=== PATIENT | female | born 1995 | race Caucasian/White ===

== ENCOUNTER 2016-11-29 18:43 | Emergency (ER) | payer MEDICAID ==
[2016-11-29 18:49] VITALS: BMI 21.2
[2016-11-29 19:17] LABS: AMORPHOUS OCC; LEUKOCYTES/URINE 2+ (NEGATIVE); NITRITE/URINE POS (NEGATIVE); URINE OCCULT BLOOD NEG (NEG/TRACE); WBC/URINE TNTC (0-5)
[2016-11-29] MEDS ORDERED: ONDANSETRON HCL 4 MG/2 ML VIAL IV ONE (19:49)
[2016-11-29] MEDS ORDERED: CEFTRIAXONE 1 GM in D5W 100 ML IV ONE (19:49)
[2016-11-29] MEDS ORDERED: MORPHINE 4 MG/ML INJECTION IV ONE (19:49)
[2016-11-29] MEDS ORDERED: NS 1,000 ML IV ONE (19:49)
[2016-11-29 19:51] LABS: AUTOMATED BASOPHIL 0.7 % (0-2); AUTOMATED EOSINOPHIL 0.1 % (0-5); AUTOMATED LYMPH 12.5 % (17-44); AUTOMATED MONOCYTE 8.4 % (3-10); AUTOMATED NEUTROPHIL 78.3 % (45-76); MPV 9.1 fL (7.4-10.4)
[2016-11-29] MEDS ORDERED: ACETAMINOPHEN 325 MG/TAB TABLET PO ONE ×2 (19:51→20:21)
--- NOTE | 2016-11-29 19:51 | EDPRACDOC ---
- General Information Chief Complaint: Female Urogenital Problems Stated Complaint: FEVER LOWER BACK PAIN BURNING WITH URINATION Time Seen by Provider: 11/29/16 19:42 Information Source: Patient Mode Of Arrival: Car Home Medications: Home Medications Ciprofloxacin HCl [Cipro] 500 mg PO BID #14 tab 11/29/16 Hydrocodone Bit/Acetaminophen [Lortab 5/325] 1 tab PO Q4-6H PRN #15 tab Metronidazole [Flagyl] 500 mg PO BID #14 tab 11/29/16 Ondansetron HCl [Zofran] 4 mg PO Q8H PRN #15 tab 11/29/16 Allergies/Adverse Reactions: Allergies Allergy/AdvReac Type Severity Reaction Status Date / Time Penicillins Allergy Nausea/Vomi Verified 11/29/16 19:47 ting tramadol Allergy Nausea/Vomi Verified 11/29/16 19:47 ting - History of Present Illness Onset: 2 week HPI: Pt c/o lower back pain, lower abd pain, n/v, fever, dysuria x 2 weeks. Denies cough, congestion, cp, sob, changes in bowel, rash. Pain Location: Reports: Suprapubic, Flank Pain Context: Reports: Spontaneous Pain Severity: Moderate Pain Quality: Reports: Aching, Sharp Pain Radiation: Reports: Back Last Menstrual Period: 2 weeks ago : No Abortus: 0 Blood Type: A+ Adult Abdominal History: Denies: Urolithiasis, Bowel Obstruction Female Abdominal History: Denies: UTI, Ectopic, PID, Urolithiasis Modifying Factors: improves with: Nothing Female Associated Signs & Symptoms: Reports: Nausea, Vomiting, Fever, Vaginal Discharge Oral Intake: Decreased Urinary Output: Normal ED Past Medical History - History Reviewed Yes Nurses notes reviewed and agree except as marked - Patient Medical History GI/ History: Denies: Urinary Tract Infection Psychological History: Denies: Depression Systemic History: Denies: Cancer, Anemia, Lupus Surgical History: Denies: Hysterectomy - Family Medical History Reports: Hypertension (MATERNAL MOTHER), Diabetes (MATERNAL GRANDPARENTS), Cancer (MATERNAL GRANDPARENTS), Stroke (MATERNAL GRANDFATHER), Cardiac Disorders (MATERNAL PARENTS) - Social Medical History Smoking Status: Heavy tobacco smoker (5 or more cigarettes/day or daily pipe/ cigar) Social History: Denies: Amphetamine Use, Barbiturate Use, Benzodiazipine Use, Cocaine Use, Heroin Use, Marijuana Use, Methadone Use ETOH: None Substance Abuse: None EDM Review of Systems - Review of Systems Constitutional: Fever Ears: No Symptoms Reported. negative: Pain, Hearing Loss, Drainage, Ear Pulling Throat: No Symptoms Reported. negative: Pain, Swelling Nose: No Symptoms Reported. negative: Congestion, Bleeding, Discharge, Injection, Swelling, Deformity, Ecchymosis, Tender, Abrasion, Laceration Mouth: No Symptoms Reported. negative: Pain, Drooling Respiratory: No Symptoms Reported. negative: Cough, Brassy Cough, Barky Cough, Shortness of Breath, Wheezing, Hemoptysis Cardiovascular: No Symptoms Reported. negative: Chest Pain, Palpitations, Syncope, Edema, Orthopnea, PND, Skin Mottling, Cyanosis Gastrointestinal: Nausea, Pain, Vomiting Genitourinary: Dysuria, Discharge Neurological: No Symptoms Reported. negative: Headache, Dizziness, Seizure, Numbness, Weakness, Speech Difficulty, Gait Difficulty Musculoskeletal: Back Integumentary: No Symptoms Reported. negative: Itching, Rash, Bruising, Wound Allergic/Immunologic: No Symptoms Reported. negative: Hives, Itching Hematologic: No Symptoms Reported. negative: Lymphadenopathy, Easy Bruising, Easy Bleeding Psychiatric: No Symptoms Reported. negative: Anxiety, Depression, Hallucinations, Insomnia, Suicidal - Physical Exam Constitutional: Alert Oriented to: Time, Person, Place Last recorded Vital Signs: Last Vital Signs Temp 100.1 F 11/29/16 18:47 Pulse 114 11/29/16 19:36 Resp 20 11/29/16 19:36 BP 126/85 11/29/16 19:36 Pulse Ox 96 11/29/16 19:36 Oxygen Pulse Oxygen Saturation 96 O2 Device Room Air Oxygen Flow Rate Fraction of Inspired Oxygen ( FIO2) - HEENT Head: Normal ( normocephalic) Eye Exam: Normal (PERRL, EOMI, Sclera white) Neck: Normal (FROM, trachea at midline) - Respiratory/Cardiovascular Respiratory: Normal - CTA (BBS clear to auscultation without adventitious sounds ) Cardiovascular: Tachycardia - GI Auscultation: Normal (NABS) Palpation: Normal (Soft,No rebound or guarding, non distended) Tenderness: Non tender - Musculoskeletal Back: CVA Tenderness (R) Extremities: Normal (Normal tone, Pulses 2+ No cyanosis or edema, FROM) - Integumentary Skin: Diaphoretic Lymphatics: Normal (no adenopathy) - Neurologic Memory Impaired: Normal Motor Function: Normal (Normal tone, Pulses 2+ No cyanosis or edema, FROM) Mood Description: Normal Perception: Normal - Differential Diagnosis Gastroenteritis, UTI, Other (pyelonephritis, vaginitis, cervicitis) - Re-evaluation Re-evaluation 1 Re-evaluation Time: 21:31 (improved) - Results 11/29/16 19:44 11/29/16 19:44 WBC 11.0 xk/uL (3.8-10.8) H 11/29/16 19:44 RBC 4.68 xM/uL (4.20-5.40) 11/29/16 19:44 Hgb 12.8 g/dL (12.0-16.0) 11/29/16 19:44 Hct 38.2 % (36-47) 11/29/16 19:44 MCV 82 fL (81-99) 11/29/16 19:44 MCH 27.3 pg (27-32) 11/29/16 19:44 MCHC 33.5 g/dl (33-36) 11/29/16 19:44 RDW 18.3 % (11.5-14.5) H 11/29/16 19:44 Plt Count 189 xk/uL (130-400) 11/29/16 19:44 MPV 9.1 fL (7.4-10.4) 11/29/16 19:44 Neut % (Auto) 78.3 % (45-76) H 11/29/16 19:44 Lymph % (Auto) 12.5 % (17-44) L 11/29/16 19:44 [place] % (Auto) 8.4 % (3-10) 11/29/16 19:44 Eos % (Auto) 0.1 % (0-5) 11/29/16 19:44 Baso % (Auto) 0.7 % (0-2) 11/29/16 19:44 Absolute Neuts (auto) 8.58 xk/uL (1.7-8.2) H 11/29/16 19:44 Absolute Lymphs (auto) 1.32 xk/uL (0.65-4.75) 11/29/16 19:44 Sodium 139 mEq/L (137-146) 11/29/16 19:44 Potassium 4.2 mEq/L (3.5-5.1) 11/29/16 19:44 Chloride 101 mEq/L (98-107) 11/29/16 19:44 Carbon Dioxide 24 mMOL/L (22-33) 11/29/16 19:44 Anion Gap 18 mEq/L (8-16) H 11/29/16 19:44 BUN 13 MG/DL (7-17) 11/29/16 19:44 Creatinine 0.60 MG/DL (0.52-1.04) 11/29/16 19:44 Estimated GFR (MDRD) > 60 mL/min (>=60) 11/29/16 19:44 Glucose 107 mg/dL (70-99) H 11/29/16 19:44 Calculated Osmolality 268 MOs/Kg (270-290) L 11/29/16 19:44 Calcium 8.7 MG/DL (8.4-10.2) 11/29/16 19:44 Total Bilirubin 0.7 MG/DL (0.2-1.3) 11/29/16 19:44 AST 31 IU/L (14-36) 11/29/16 19:44 ALT 38 IU/L (9-52) 11/29/16 19:44 Alkaline Phosphatase 89 IU/L (38-126) 11/29/16 19:44 Total Protein 7.7 G/DL (6.3-8.2) 11/29/16 19:44 Albumin 4.1 G/DL (3.5-5.0) 11/29/16 19:44 Urine Color Yellow 11/29/16 18:50 Urine Clarity Cldy 11/29/16 18:50 Urine pH 8.0 (5.0-8.0) 11/29/16 18:50 Ur Specific [place] 1.010 (1.003-1.035) 11/29/16 18:50 Urine Protein 1+ (NEG/TRACE) H 11/29/16 18:50 Urine Glucose (UA) Neg (NEGATIVE) 11/29/16 18:50 Urine Ketones 1+ (NEGATIVE) H 11/29/16 18:50 Urine Occult Blood Neg (NEG/TRACE) 11/29/16 18:50 Urine Nitrite Pos (NEGATIVE) H 11/29/16 18:50 Urine Bilirubin Neg (NEGATIVE) 11/29/16 18:50 Urine Urobilinogen 8 MG/DL (0-1) H 11/29/16 18:50 Ur Leukocyte Esterase 2+ (NEGATIVE) H 11/29/16 18:50 Urine WBC Tntc (0-5) H 11/29/16 18:50 Ur Epithelial Cells 2+ 11/29/16 18:50 Amorphous Sediment Occ 11/29/16 18:50 Urine Bacteria 4+ (NEG/FEW) H 11/29/16 18:50 Urine Test Neg (NEGATIVE) 11/29/16 18:50 Microbiology 11/29/16 20:05 MUNIRA Preparation - Final Vaginal 11/29/16 20:05 Trichomonas Wet [place] - Final Vaginal Lab Results 11/29/16 11/29/16 11/29/16 19:44 19:44 18:50 WBC 11.0 H RBC 4.68 Hgb 12.8 Hct 38.2 MCV 82 MCH 27.3 MCHC 33.5 RDW 18.3 H Plt Count 189 MPV 9.1 Neut % (Auto) 78.3 H Lymph % (Auto) 12.5 L [place] % (Auto) 8.4 Eos % (Auto) 0.1 Baso % (Auto) 0.7 Absolute Neuts (auto) 8.58 H Absolute Lymphs (auto) 1.32 Sodium 139 Potassium 4.2 Chloride 101 Carbon Dioxide 24 Anion Gap 18 H BUN 13 Creatinine 0.60 Estimated GFR (MDRD) > 60 Glucose 107 H Calculated Osmolality 268 L Calcium 8.7 Total Bilirubin 0.7 AST 31 ALT 38 Alkaline Phosphatase 89 Total Protein 7.7 Albumin 4.1 Urine Color Yellow Urine Clarity Cldy Urine pH 8.0 Ur Specific [place] 1.010 Urine Protein 1+ H Urine Glucose (UA) Neg Urine Ketones 1+ H Urine Occult Blood Neg Urine Nitrite Pos H Urine Bilirubin Neg Urine Urobilinogen 8 H Ur Leukocyte Esterase 2+ H Urine WBC Tntc H Ur Epithelial Cells 2+ Amorphous Sediment Occ Urine Bacteria 4+ H Urine Test 11/29/16 18:50 WBC RBC Hgb Hct MCV MCH MCHC RDW Plt Count MPV Neut % (Auto) Lymph % (Auto) [place] % (Auto) Eos % (Auto) Baso % (Auto) Absolute Neuts (auto) Absolute Lymphs (auto) Sodium Potassium Chloride Carbon Dioxide Anion Gap BUN Creatinine Estimated GFR (MDRD) Glucose Calculated Osmolality Calcium Total Bilirubin AST ALT Alkaline Phosphatase Total Protein Albumin Urine Color Urine Clarity Urine pH Ur Specific [place] Urine Protein Urine Glucose (UA) Urine Ketones Urine Occult Blood Urine Nitrite Urine Bilirubin Urine Urobilinogen Ur Leukocyte Esterase Urine WBC Ur Epithelial Cells Amorphous Sediment Urine Bacteria Urine Test Neg - Diagnostic Imaging Abdomen Image interpreted by: Radiologist 11/29/16 21:46 IMPRESSION: 1. Right kidney lower pole nonobstructive calculus. There is some poor definition of fat planes along the right renal hilum, and I would recommend correlation with urine analysis and urine culture to exclude an inflammatory process of the right kidney such as pyelonephritis. No hydronephrosis or hydroureter. No ureteral calculus. 2. Borderline dilated loops of proximal jejunum with air-fluid levels. This could reflect proximal enteritis but is technically nonspecific. Decision Time to Discharge: 21:46 - Departure Disposition: Home Condition: Good Final Diagnosis: Pyelonephritis, Cervicitis, BV (bacterial vaginosis) Instructions: Bacterial Vaginosis (ED), Cervicitis (ED), Urinary Tract Infection in Women (ED) Education/Counseling Given To: Patient Education/Counseling Given Regarding: Diagnosis, Treatment, Follow Up Referrals: Stephany Quigley [employer] [Primary Care Provider] - One Week Prescriptions: New Ciprofloxacin HCl [Cipro] 500 mg PO BID #14 tab Hydrocodone Bit/Acetaminophen [Lortab 5/325] 1 tab PO Q4-6H PRN #15 tab PRN Reason: Pain Metronidazole [Flagyl] 500 mg PO BID #14 tab Ondansetron HCl [Zofran] 4 mg PO Q8H PRN #15 tab PRN Reason: Nausea/Vomiting Additional Instructions: Increase fluids. Return for worse or different symptoms.
[2016-11-29] MEDS ORDERED: NS 1,000 ML IV SCH (20:00)
[2016-11-29 20:02] LABS: BLOOD UREA NITROGEN 13 MG/DL (7-17); CALCIUM 8.7 MG/DL (8.4-10.2); CALCULATED OSMOLALITY 268 MOs/Kg (270-290); CHLORIDE 101 mEq/L (98-107); GLUCOSE 107 mg/dL (70-99); SODIUM LEVEL 139 mEq/L (137-146); TOTAL PROTEIN 7.7 G/DL (6.3-8.2)
[2016-11-29] MEDS ORDERED: AZITHROMYCIN 250 MG TAB PO ONE (20:05)
--- NOTE | 2016-11-29 21:45 | DIRPT ---
CLINICAL DATA: Right flank pain. Fever. Dysuria. EXAM: CT ABDOMEN AND PELVIS WITHOUT CONTRAST TECHNIQUE: Multidetector CT imaging of the abdomen and pelvis was performed following the standard protocol without IV contrast. COMPARISON: 11/02/2009 FINDINGS: Lower chest: Unremarkable Hepatobiliary: Unremarkable Pancreas: Unremarkable Spleen: Unremarkable Adrenals/Urinary Tract: 6 mm right kidney lower pole nonobstructive calculus. Poor definition of fat planes along the right renal hilum. No hydronephrosis or hydroureter. No ureteral or bladder calculus is observed. No left-sided calculi identified. Stomach/Bowel: Borderline dilated loops of proximal jejunum with air-fluid levels. Formed stool in the colon. No abnormality of the visualized segment of the appendix identified. Vascular/Lymphatic: Unremarkable Reproductive: Uterine length 9.6 cm as measured along the endometrial axis. Ovarian contours unremarkable. Other: No supplemental non-categorized findings. Musculoskeletal: Unremarkable IMPRESSION: 1. Right kidney lower pole nonobstructive calculus. There is some poor definition of fat planes along the right renal hilum, and I would recommend correlation with urine analysis and urine culture to exclude an inflammatory process of the right kidney such as pyelonephritis. No hydronephrosis or hydroureter. No ureteral calculus. 2. Borderline dilated loops of proximal jejunum with air-fluid levels. This could reflect proximal enteritis but is technically nonspecific. Electronically Signed By: Houston Vazquez M.D. On: 11/29/2016 21:43
[2016-11-29 22:14] VITALS: BP 111/67; PULSE 103; TEMP 99
== END 2016-11-29 21:56 | disposition home or self-care (01) ==
LOC: ED 18:43 → EDMC 21:56
DX: N12 Tubulo-interstitial nephritis, not specified as acute or chronic (principal); N76.0 Acute vaginitis; B96.89 Other specified bacterial agents as the cause of diseases classified elsewhere; N72 Inflammatory disease of cervix uteri
CPT/HCPCS: 36415; 74176; 80053; 81001; 81025; 85025; 87040; 87077; 87086; 87210; 87220; 87491; 87591; 96361; 96365; 96375; 99284; J0696; J2270; J2405; J3490; J7060; 87186